=== PATIENT | female | born 2005 | race Caucasian/White ===

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

== ENCOUNTER 2024-01-12 11:02 | Emergency (ER) | payer SELFPAY ==
--- NOTE | ~2024-01-12 | XR_ITS ---
EXAMINATION: XR wrist RT min 3V DATE: 01/12/2024 12:18 INDICATION: Right wrist injury. TECHNIQUE: 4 views of right wrist were obtained. COMPARISON: None. FINDINGS: Bone alignment is normal. No fracture. Joint spaces are normal. IMPRESSION: 1. Normal right wrist. Reviewed, dictated and finalized at location A. IMPRESSION: 1. Normal right wrist.
--- NOTE | ~2024-01-12 | XR_ITS ---
EXAMINATION: XR forearm RT 2V DATE: 01/12/2024 12:18 INDICATION: Right forearm injury. TECHNIQUE: 2 views of right forearm were obtained. COMPARISON: None. FINDINGS: Bone alignment is normal. No fracture. Joint spaces are normal. No elbow joint effusion. IMPRESSION: 1. No fracture. Reviewed, dictated and finalized at location A. IMPRESSION: 1. No fracture.
[2024-01-12 11:05] VITALS: BP 148/97; PULSE 87; RESP 16; TEMP 36.8; O2SAT 100
[2024-01-12 11:58] VITALS: BP 128/79; PULSE 81; RESP 18; TEMP 36.8; O2SAT 100
--- NOTE | 2024-01-12 12:28 | ED.UPPEXIN ---
HPI - Extremity Injury (Upper) General Chief Complaint: Extremity Injury, Upper Stated Complaint: arm injury Time Seen by Provider: 01/12/24 11:55 History of Present Illness HPI narrative: 18-year-old female presents to the emergency room for evaluation of right forearm and wrist pain. Patient states that she was assisting a family member moving, when a box full of ceramic collect doubles fell on her forearm. Patient states that she noticed some swelling and tenderness to the forearm. Of reportedly took 500 mg of Tylenol prior to arrival for pain relief. No other injuries Related Data Home Medications Medication Instructions Recorded Confirmed duloxetine 30 mg capsule,delayed mg PO 10/05/21 release hydroxyzine HCl 25 mg tablet 10/05/21 Allergies Allergy/AdvReac Type Severity Reaction Status Date / Time No Known Allergies Allergy Verified 08/03/19 17:40 Review of Systems Review of Systems: CONSTITUTIONAL: Denies fever, chills, or sweats. EYES: Denies visual changes, redness, or discharge. ENT: Denies rhinorrhea, congestion, sore throat, or otalgia. CARDIOVASCULAR: Denies chest pain, palpitations, or edema. RESPIRATORY: Denies cough or dyspnea. GASTROINTESTINAL: Denies abdominal pain, nausea, vomiting, or diarrhea. GENITOURINARY: Denies dysuria or hematuria. SKIN: Denies rash or itching. MUSCULOSKELETAL: Endorses right forearm pain NEUROLOGIC: Denies headache, numbness, dizziness, or weakness. PSYCHIATRIC: Denies anxiety or depression. PMFSH Social History Social History Gender identity (if verbalized by the patient): Female Exam Narrative: GENERAL: Well-appearing, well-nourished, no physical limitations, and in no acute distress. HEAD: Normocephalic, atraumatic. EYES: Conjunctivae normal, PERRLA and EOMI. ENT: External nose normal, Nares clear, no rhinorrhea or epistaxis. Mucous membranes moist. Oropharynx without tonsillar hypertrophy exudate or other lesions. External ears normal, bilateral TMs normal bilaterally NECK: Supple. No meningeal signs. No adenopathy or masses. No carotid bruits or JVD CHEST: Clear to auscultation. No respiratory distress. No wheezes rales or rhonchi. No tenderness. HEART: Regular rate and rhythm. No murmur heard. Normal peripheral pulses. EXTREMITIES: Right forearm: +TTP to midshaft of forearm. No obvious bony abnormality. FROM of wrist and elbow. No ecchymosis SKIN: Warm, dry, no rash. No noted wounds NEURO: No focal deficits. Alert and oriented x3. MAEW. CN's II-XI intact bilaterally, normal gait PSYCH: Cooperative. Normal mood and affect. Course Vital Signs Vital signs: Vital Signs Temperature 36.8 C 01/12/24 11:05 Pulse Rate 87 01/12/24 11:05 Respiratory Rate 16 01/12/24 11:05 Blood Pressure 148/97 H 01/12/24 11:05 Pulse Oximetry 100 01/12/24 11:05 Temperature 36.8 C 01/12/24 11:58 Pulse Rate 81 01/12/24 11:58 Respiratory Rate 18 01/12/24 11:58 Blood Pressure 128/79 01/12/24 11:58 Pulse Oximetry 100 01/12/24 11:58 Discharge Plan Discharge Clinical Impression: Contusion of forearm, left Patient Disposition: Home, Self-Care Condition: Stable Instructions: Antibiotic Form, Contusion in Adults (ED) Prescriptions: No Action hydroxyzine HCl 25 mg tablet duloxetine 30 mg capsule,delayed release(DR/EC) PO Follow-up/Referrals: UNKNOWN,DOCTOR [Primary Care Provider] - Time of Disposition: 12:35
[2024-01-12 12:45] VITALS: BP 137/78; PULSE 88; RESP 19; TEMP 36.8; O2SAT 100
== END 2024-01-12 12:53 | disposition home or self-care (01) ==
PROVIDERS: Emergency Provider Nurse Practitioner Family
DX: S50.11XA Contusion of right forearm, initial encounter (principal); W20.8XXA Other cause of strike by thrown, projected or falling object, initial encounter
CPT/HCPCS: 73090; 73110; 99283